=== PATIENT | male | born 1975 | race Caucasian/White ===

== ENCOUNTER 2020-06-10 06:51 | Day surgery (SDC) | payer OTHER ==
[2020-06-09 13:30] LABS: COVID AG,FIA SOURCE NASOPHARYNGEAL
[~2020-06-10] VITALS: Ht 167.6 cm; Wt 86.4 kg
[~2020-06-10 06:51] MED LIST: ATOR10TA84 PO; METF-960 PO; SODIUM CHLORIDE 0.9% 1,000 ML IV ONE
[2020-06-10] MEDS ORDERED: LIDOCAINE 2% 30 ML JELLY TP ONE (06:52)
[2020-06-10] MEDS ORDERED: ALBUTEROL SULFATE 2.5 MG/0.5 ML NEB SOLUTION NEB ONE (06:52)
[2020-06-10] MEDS ORDERED: BENZOCAINE 20% 50 MCG/SPRAY 57 GM TP ONE (06:52)
[2020-06-10] MEDS ORDERED: LIDOCAINE 4% 50 ML SOLUTION TP ONE (06:52)
[2020-06-10] MEDS ORDERED: MIDAZOLAM HCL 2 MG/2 ML VIAL ONE (08:08)
[2020-06-10] MEDS ORDERED: FentaNYL CITRATE-PF 100 MCG/2 ML VIAL ONE (08:09)
[2020-06-10] MEDS ORDERED: MethylPREDNISolone SOD SUCC 125 MG/2 ML VIAL IVP ONE (08:30)
[2020-06-10] MEDS ORDERED: OXYGEN THERAPY IH SCH (20:00)
== END 2020-06-10 09:55 | disposition home or self-care (01) ==
LOC: SURGERY 06:51
PROVIDERS: ATTEND Internal Medicine Critical Care Medicine
DX: J38.4 Edema of larynx (principal); B37.0 Candidal stomatitis; Z20.828 Contact with and (suspected) exposure to other viral communicable diseases
CPT/HCPCS: 31623; 31624; 71045; 87070; 87101; 87206; 87220; 87426; 88184; 88185; C9803; J2250; J2930; J3010; 87015; 88108; 88312; J7613; Z7610

== ENCOUNTER → 2023-04-12 | Outpatient (CLI) | payer OTHER ==
[~2023-04-12] MED LIST changes: +ATOR10TA PO; -ATOR10TA84 PO; +METF-1211 PO; -METF-960 PO; -SODIUM CHLORIDE 0.9% 1,000 ML IV ONE
[2023-04-13 04:06] LABS: RUBEOLA (MEASLES) IGG >300.0 AU/mL (Immune >16.4); VARICELLA ZOSTER IGG AB TITER 256 index (Immune >165)
[2023-04-13 06:07] LABS: MUMPS VIRUS IGG ANTIBODY <9.0 AU/mL (Immune >10.9)
== END | disposition home or self-care (01) ==
LOC: LABMN 16:20
PROVIDERS: ATTEND Internal Medicine
DX: Z02.1 Encounter for pre-employment examination (principal)
CPT/HCPCS: 86735; 86762; 86765; 86787; 87340

== ENCOUNTER 2024-03-25 19:21 | Emergency (ER) | payer OTHER ==
[~2024-03-25] VITALS: Ht 165.1 cm; Wt 81.4 kg
[2024-03-25 19:25] VITALS: TEMP 97.8
[2024-03-25] MEDS ORDERED: EMPA10TA3 PO (19:36)
[2024-03-25] MEDS ORDERED: ATOR40TA71 PO (20:09)
[2024-03-25] MEDS ORDERED: LOSA-381 PO (20:09)
[2024-03-25] MEDS: HYDROCODONE/ACETAMINOPHEN 5-325 MG TABLET PO ONE ×2 (20:16→21:28)
[2024-03-25] MEDS: LIDOCAINE 5% TRANSDERMAL PATCH TD ONE (20:16)
[2024-03-25] MEDS: BACLOFEN 10 MG TABLET PO ONE (20:16)
[2024-03-25 21:24] LABS: APPEARANCE,URINE CLEAR (CLEAR); BILIRUBIN,URINE NEGATIVE (NEGATIVE); COLOR,URINE LIGHT YELLOW (YELLOW); GLUCOSE, URINE (UA) >=1000 mg/dL (NEGATIVE); KETONES,URINE NEGATIVE (NEGATIVE); LEUKOCYTE ESTERASE ,URINE NEGATIVE (NEGATIVE); NITRATE,URINE NEGATIVE (NEGATIVE); OCCULT BLOOD,URINE NEGATIVE (NEGATIVE); PROTEIN,URINE NEGATIVE (NEGATIVE); SPECIFIC GRAVITIY, URINE 1.029 (1.003-1.030); UROBILINOGEN,URINE <=1.0 mg/dL (<=1.0)
[2024-03-25] MEDS ORDERED: BACL10TA PO (21:39)
[2024-03-25 22:22] VITALS: BP 140/60; PULSE 76; RESP 16; O2SAT 98
[2024-03-25 22:24] LABS: BACTERIA,URINE None Seen /HPF (None Seen); RBC,URINE None Seen /HPF (0-2); WBC,URINE None Seen /HPF (0-5)
== END 2024-03-25 22:24 | disposition home or self-care (01) ==
LOC: EMS 19:21
DX: M54.50 Low back pain, unspecified (principal); E11.9 Type 2 diabetes mellitus without complications; F17.210 Nicotine dependence, cigarettes, uncomplicated
CPT/HCPCS: 72100; 81001; 82962; 99284